=== PATIENT | female | born 1970 | race Caucasian/White ===

== ENCOUNTER → 2022-03-28 14:58 | Outpatient (CLI) | payer OTHER, SELFPAY ==
[2022-03-28 15:00] LABS: Basophils # 0.1 K/mm3 (0-0.2); Basophils % 0.9 % (0.1-2.0); Eosinophils # 0.3 K/mm3 (0.0-0.4); Eosinophils % 3.4 % (0.1-12.0); Hematocrit 38.4 % (37.0-47.0); Hemoglobin 12.7 g/dL (12.2-16.2); Lymphocytes # 2.6 K/mm3 (0.7-4.5); Lymphocytes % 28.5 % (10-50); Mean Corpuscular HGB Conc 33.2 g/dL (31.8-35.4); Mean Corpuscular Hemoglobin 30.6 pg (27.0-31.2); Mean Corpuscular Volume 92.2 fl (81-99); Mean Platelet Volume 9.5 fl (7.4-10.4); Monocytes # 0.2 K/mm3 (0.1-1.0); Monocytes % 2.6 % (1.7-9.3); Neutrophils # 5.9 K/mm3 (1.8-7.8); Neutrophils % 64.7 % (37.0-80.0); Platelet Count 227 K/mm3 (142-424); Red Blood Count 4.17 M/mm3 (4.20-5.40); Red Cell Distribution Width 14.6 % (11.5-17.5); White Blood Count 9.1 K/mm3 (4.8-10.8)
[2022-03-28 15:43] LABS: Chloride 93 mmol/L (98-107); Potassium 3.8 mmoL/L (3.5-5.1); Sodium 138 mmol/L (136-145)
[2022-03-28 15:45] LABS: Blood Urea Nitrogen 64 mg/dl (7-17); Estimated Glomerular Filt Rate 22 ml/min (>60); GFR (African American) 27 ML/MIN (>60)
[2022-03-28 15:46] LABS: Alanine Aminotransferase 62 U/L (12-78); Albumin/Globulin Ratio 1.1 (1.1-1.8); Alkaline Phosphatase 157 U/L (38-126); Anion Gap 13.8 mEq/L (5-15); Aspartate Amino Transferase 102 U/L (14-36); Bilirubin,Total 0.6 mg/dl (0.2-1.3); Carbon Dioxide 35 mmol/L (22.0-30.0); Chol/HDL Ratio 4.5 (1-3.5); Cholesterol 158 mg/dl (140-200); Globulin 3.7 g/dL (1.3-3.2); Glucose 90 mg/dl (74-100); HDL Cholesterol 35 mg/dl (40-60); Total Protein,Serum 7.7 g/dl (6.3-8.2); Triglycerides 96 mg/dl (30-150); VLDL Cholesterol 19 mg/dL (0-40)
[2022-03-28 15:58] LABS: Direct LDL Cholesterol 88.34 mg/dL (100-129)
[2022-03-28 16:15] LABS: 25-OH Vitamin D, Total < 12.8 ng/mL (30-100)
[2022-03-28 16:17] LABS: Thyroid Stimulating Hormone 0.92 uIU/mL (0.465-4.68)
[2022-03-28 16:37] LABS: Erythrocyte Sedimentation Rate 108 mm/hr (0-30)
[2022-03-30 11:39] LABS: RA Latex Turbid. 16.3 IU/mL (<14.0)
[2022-04-04 23:19] LABS: Antinuclear Antibodies, IFA POSITIVE
== END ==
PROVIDERS: PCP Emergency Medicine; Visit Provider Emergency Medicine
DX: M35.3 Polymyalgia rheumatica (principal); E66.9 Obesity, unspecified; Z68.43 Body mass index [BMI] 50.0-59.9, adult; E55.9 Vitamin D deficiency, unspecified
CPT/HCPCS: 80053; 80061; 82306; 83036; 84439; 84443; 84550; 85025; 85651; 86038; 86431

== ENCOUNTER → 2022-06-13 15:31 | Outpatient (CLI) | payer OTHER, SELFPAY ==
[2022-06-13 14:54] LABS: Barbiturates Screen,Urine Negative ng/ml (<200)
[2022-06-13 14:55] LABS: Benzodiazepines Screen,Urine Positive ng/ml (<200)
[2022-06-13 14:56] LABS: Methadone Screen,Urine Negative ng/ml (<300)
[2022-06-13 14:57] LABS: Cannabinoid Screen,Urine Negative ng/ml (<50)
[2022-06-13 14:58] LABS: Cocaine Screen,Urine Negative ng/ml (<300); Opiate Screen,Urine Negative ng/ml (<300)
[2022-06-13 14:59] LABS: Phencyclidine Screen,Urine Negative ng/ml (<25)
[2022-06-13 15:01] LABS: Amphetamine/Metha Screen,Urine Negative ng/ml (<1000)
== END ==
PROVIDERS: PCP Nurse Practitioner Family; Visit Provider Nurse Practitioner Family
DX: Z79.899 Other long term (current) drug therapy (principal)
CPT/HCPCS: 80305

== ENCOUNTER → 2022-06-19 10:29 | Outpatient (CLI) | payer OTHER, SELFPAY ==
[2022-06-19 11:42] LABS: Anion Gap 9.2 mEq/L (5-15); Blood Urea Nitrogen 14 mg/dl (7-17); Calcium 8.9 mg/dl (8.4-10.2); Carbon Dioxide 32 mmol/L (22.0-30.0); Chloride 99 mmol/L (98-107); Estimated Glomerular Filt Rate 75 ml/min (>60); GFR (African American) 91 ML/MIN (>60); Glucose 113 mg/dl (74-100); Potassium 3.2 mmoL/L (3.5-5.1); Sodium 137 mmol/L (136-145)
== END ==
LOC: LAB 10:29 → LAB.DROPOF 13:34
PROVIDERS: PCP Emergency Medicine; Visit Provider Emergency Medicine
DX: I10 Essential (primary) hypertension (principal)
CPT/HCPCS: 36415; 80048

== ENCOUNTER → 2022-10-08 13:00 | Outpatient (CLI) | payer OTHER, SELFPAY ==
[2022-10-08 20:18] LABS: Amphetamine/Metha Screen,Urine Negative ng/ml (<1000); Barbiturates Screen,Urine Negative ng/ml (<200)
[2022-10-08 20:19] LABS: Benzodiazepines Screen,Urine Negative ng/ml (<200)
[2022-10-08 20:20] LABS: Cannabinoid Screen,Urine Negative ng/ml (<50); Cocaine Screen,Urine Negative ng/ml (<300)
[2022-10-08 20:21] LABS: Methadone Screen,Urine Negative ng/ml (<300); Opiate Screen,Urine Negative ng/ml (<300)
[2022-10-08 20:22] LABS: Phencyclidine Screen,Urine Negative ng/ml (<25)
== END ==
PROVIDERS: PCP Emergency Medicine; Visit Provider Emergency Medicine
DX: Z79.899 Other long term (current) drug therapy (principal)
CPT/HCPCS: 80305

== ENCOUNTER → 2022-12-11 02:45 | Outpatient (CLI) | payer OTHER, SELFPAY ==
[2022-12-11 21:13] LABS: Amphetamine/Metha Screen,Urine Negative ng/ml (<1000); Barbiturates Screen,Urine Negative ng/ml (<200)
[2022-12-11 21:14] LABS: Benzodiazepines Screen,Urine Negative ng/ml (<200)
[2022-12-11 21:15] LABS: Cannabinoid Screen,Urine Negative ng/ml (<50); Cocaine Screen,Urine Negative ng/ml (<300)
[2022-12-11 21:16] LABS: Methadone Screen,Urine Negative ng/ml (<300)
[2022-12-11 21:17] LABS: Opiate Screen,Urine Negative ng/ml (<300); Phencyclidine Screen,Urine Negative ng/ml (<25)
== END ==
PROVIDERS: PCP Emergency Medicine; Visit Provider Emergency Medicine
DX: F41.9 Anxiety disorder, unspecified (principal)
CPT/HCPCS: 80305

== ENCOUNTER → 2023-02-06 08:39 | Outpatient (CLI) | payer OTHER, SELFPAY ==
[2023-02-06 22:03] LABS: Barbiturates Screen,Urine Negative ng/ml (<200)
[2023-02-06 22:04] LABS: Benzodiazepines Screen,Urine Negative ng/ml (<200)
[2023-02-06 22:05] LABS: Amphetamine/Metha Screen,Urine Negative ng/ml (<1000); Cocaine Screen,Urine Negative ng/ml (<300)
[2023-02-06 22:06] LABS: Cannabinoid Screen,Urine Negative ng/ml (<50); Methadone Screen,Urine Negative ng/ml (<300)
[2023-02-06 22:08] LABS: Opiate Screen,Urine Positive ng/ml (<300); Phencyclidine Screen,Urine Negative ng/ml (<25)
== END ==
PROVIDERS: PCP Emergency Medicine; Visit Provider Emergency Medicine
DX: Z79.899 Other long term (current) drug therapy (principal)
CPT/HCPCS: 80305

== ENCOUNTER 2023-04-11 20:27 | Outpatient (CLI) | payer OTHER, SELFPAY ==
[2023-04-11 18:56] LABS: Basophils # 0.1 K/mm3 (0-0.2); Basophils % 0.7 % (0.1-2.0); Eosinophils # 0.3 K/mm3 (0.0-0.4); Eosinophils % 3.2 % (0.1-12.0); Hematocrit 42.3 % (37.0-47.0); Lymphocytes # 2.2 K/mm3 (0.7-4.5); Lymphocytes % 28.1 % (10-50); Mean Corpuscular HGB Conc 33.1 g/dL (31.8-35.4); Mean Corpuscular Hemoglobin 30.7 pg (27.0-31.2); Mean Corpuscular Volume 92.5 fl (81-99); Mean Platelet Volume 9.2 fl (7.4-10.4); Monocytes # 0.3 K/mm3 (0.1-1.0); Monocytes % 3.4 % (1.7-9.3); Neutrophils # 5.1 K/mm3 (1.8-7.8); Neutrophils % 64.6 % (37.0-80.0); Platelet Count 229 K/mm3 (142-424); Red Blood Count 4.57 M/mm3 (4.20-5.40); Red Cell Distribution Width 14.8 % (11.5-17.5); White Blood Count 7.9 K/mm3 (4.8-10.8)
[2023-04-11 19:13] LABS: Alanine Aminotransferase 30 U/L (12-78); Alkaline Phosphatase 174 U/L (38-126); Aspartate Amino Transferase 45 U/L (14-36); Bilirubin,Total 0.4 mg/dl (0.2-1.3); Blood Urea Nitrogen 17 mg/dl (7-17); Calcium 9.6 mg/dl (8.4-10.2); Carbon Dioxide 38 mmol/L (22.0-30.0); Chloride 96 mmol/L (98-107); Chol/HDL Ratio 5.6 (1-3.5); Cholesterol 175 mg/dl (140-200); Estimated Glomerular Filt Rate 66 ml/min (>60); GFR (African American) 80 ML/MIN (>60); Globulin 4.2 g/dL (1.3-3.2); Glucose 113 mg/dl (74-100); HDL Cholesterol 31 mg/dl (40-60); Sodium 139 mmol/L (136-145); Total Protein,Serum 8.2 g/dl (6.3-8.2); Triglycerides 96 mg/dl (30-150); VLDL Cholesterol 19 mg/dL (0-40)
[2023-04-11 19:16] LABS: Anion Gap 8.1 mEq/L (5-15); Potassium 3.1 mmoL/L (3.5-5.1)
[2023-04-11 19:24] LABS: Direct LDL Cholesterol 112.04 mg/dL (100-129)
[2023-04-11 19:27] LABS: Hemoglobin A1C 5.7 % (4.0-6.0)
[2023-04-11 19:48] LABS: 25-OH Vitamin D, Total < 12.8 ng/mL (30-100)
[2023-04-11 20:20] LABS: Thyroid Stimulating Hormone 1.07 uIU/mL (0.465-4.68)
[2023-04-11 21:00] LABS: Amphetamine/Metha Screen,Urine Negative ng/ml (<1000)
[2023-04-11 21:02] LABS: Barbiturates Screen,Urine Negative ng/ml (<200)
[2023-04-11 21:04] LABS: Cannabinoid Screen,Urine Negative ng/ml (<50)
[2023-04-11 21:05] LABS: Methadone Screen,Urine Negative ng/ml (<300)
[2023-04-11 21:06] LABS: Opiate Screen,Urine Negative ng/ml (<300); Phencyclidine Screen,Urine Negative ng/ml (<25)
[2023-04-11 21:11] LABS: Benzodiazepines Screen,Urine Negative ng/ml (<200)
[2023-04-11 21:13] LABS: Cocaine Screen,Urine Negative ng/ml (<300)
[2023-04-19 11:36] LABS: Alprazolam Negative (Cutoff=100); Benzodiazepines Negative ng/mL (Cutoff=100); Clonazepam Negative (Cutoff=100); Flurazepam Negative (Cutoff=100); Lorazepam Negative (Cutoff=100); Midazolam Negative (Cutoff=100); Opiates Negative (Cutoff=100); Temazepam Negative (Cutoff=100); Triazolam Negative (Cutoff=100)
== END 2023-04-11 23:59 ==
LOC: LAB.DROPOF 20:28
PROVIDERS: Visit Provider Family Medicine
DX: E11.9 Type 2 diabetes mellitus without complications (principal); E66.01 Morbid (severe) obesity due to excess calories; Z68.43 Body mass index [BMI] 50.0-59.9, adult; Z79.899 Other long term (current) drug therapy
CPT/HCPCS: 80053; 80061; 80307; 80346; 80361; 80365; 82306; 83036; 84443; 85025; G0480

== ENCOUNTER 2023-05-08 21:46 | Outpatient (CLI) | payer OTHER, SELFPAY ==
[2023-05-08 20:16] LABS: Basophils % 0.3 % (0.1-2.0); Hematocrit 42.3 % (37.0-47.0); Hemoglobin 14.3 g/dL (12.2-16.2); Lymphocytes # 2.2 K/mm3 (0.7-4.5); Lymphocytes % 22.7 % (10-50); Mean Corpuscular HGB Conc 33.9 g/dL (31.8-35.4); Mean Corpuscular Hemoglobin 30.3 pg (27.0-31.2); Mean Corpuscular Volume 89.5 fl (81-99); Mean Platelet Volume 11.2 fl (7.4-10.4); Monocytes # 0.4 K/mm3 (0.1-1.0); Monocytes % 3.8 % (1.7-9.3); Neutrophils # 7.2 K/mm3 (1.8-7.8); Neutrophils % 73.2 % (37.0-80.0); Platelet Count 150 K/mm3 (142-424); Red Blood Count 4.73 M/mm3 (4.20-5.40); Red Cell Distribution Width 14.9 % (11.5-17.5); White Blood Count 9.8 K/mm3 (4.8-10.8)
[2023-05-08 20:23] LABS: Alanine Aminotransferase 45 U/L (12-78); Albumin Level 3.9 g/dl (3.5-5.0); Alkaline Phosphatase 171 U/L (38-126); Anion Gap 9.6 mEq/L (5-15); Aspartate Amino Transferase 120 U/L (14-36); Bilirubin,Total 0.7 mg/dl (0.2-1.3); Blood Urea Nitrogen 31 mg/dl (7-17); Carbon Dioxide 34 mmol/L (22.0-30.0); Chloride 94 mmol/L (98-107); Chol/HDL Ratio 8.1 (1-3.5); Cholesterol 162 mg/dl (140-200); Estimated Glomerular Filt Rate 47 ml/min (>60); GFR (African American) 57 ML/MIN (>60); Glucose 109 mg/dl (74-100); HDL Cholesterol 20 mg/dl (40-60); Sodium 135 mmol/L (136-145); Total Protein,Serum 7.9 g/dl (6.3-8.2); Triglycerides 113 mg/dl (30-150); VLDL Cholesterol 23 mg/dL (0-40)
[2023-05-08 20:35] LABS: Erythrocyte Sedimentation Rate 40 mm/hr (0-30)
[2023-05-08 20:36] LABS: C-Reactive Protein 83.7 mg/L (0-4); Direct LDL Cholesterol 108.53 mg/dL (100-129)
[2023-05-08 20:41] LABS: 25-OH Vitamin D, Total 15.9 ng/mL (30-100)
[2023-05-08 20:50] LABS: Potassium 2.6 mmoL/L (3.5-5.1)
[2023-05-08 20:56] LABS: Thyroid Stimulating Hormone 0.25 uIU/mL (0.465-4.68)
[2023-05-08 22:58] LABS: Creatinine,Urine Random 75 mg/dL (Not Estab.)
[2023-05-08 23:00] LABS: Microalbumin < 6.000 mg/L (0-16.7)
[2023-05-10 05:08] LABS: Complement C3 128 mg/dL (82-167); RA Latex Turbid. 16.5 IU/mL (<14.0)
[2023-05-10 12:48] LABS: Anti-Centromere B Antibodies <0.2 AI (0.0-0.9); Anti-DNA (DS) Ab Qn <1 IU/mL (0-9); Anti-Jo-1 <0.2 AI (0.0-0.9); Anti-Smith Antibody <0.2 AI (0.0-0.9); Antichromatin Antibodies <0.2 AI (0.0-0.9); Antiscleroderma-70 Antibodies <0.2 AI (0.0-0.9); RNP Antibodies <0.2 AI (0.0-0.9); Sjogren's Anti-SS-A <0.2 AI (0.0-0.9); Sjogren's Anti-SS-B <0.2 AI (0.0-0.9)
[2023-05-10 14:16] LABS: Anti-Cyclic Citrullinated Pept 8 units (0-19)
[2023-05-23 12:37] LABS: Rheumatoid Factor IGA 20 U (<7); Rheumatoid Factor IGM 16 U (<7)
== END 2023-05-08 23:59 ==
LOC: LAB.DROPOF 21:46
PROVIDERS: PCP Internal Medicine; Visit Provider Internal Medicine
DX: I25.10 Atherosclerotic heart disease of native coronary artery without angina pectoris (principal); R53.83 Other fatigue; F41.9 Anxiety disorder, unspecified; I10 Essential (primary) hypertension; K74.60 Unspecified cirrhosis of liver; R76.8 Other specified abnormal immunological findings in serum; E11.9 Type 2 diabetes mellitus without complications; E55.9 Vitamin D deficiency, unspecified; R79.82 Elevated C-reactive protein (CRP); R76.0 Raised antibody titer
CPT/HCPCS: 80053; 80061; 82043; 82306; 82570; 84443; 85025; 85651; 86140; 86148; 86161; 86200; 86225; 86235; 86431

== ENCOUNTER 2023-06-10 19:03 | Outpatient (CLI) | payer OTHER, SELFPAY ==
[2023-06-10 18:36] LABS: Chloride 100 mmol/L (98-107); Sodium 138 mmol/L (136-145)
[2023-06-10 18:39] LABS: Alanine Aminotransferase 32 U/L (12-78); Albumin Level 3.7 g/dl (3.5-5.0); Alkaline Phosphatase 201 U/L (38-126); Anion Gap 7.8 mEq/L (5-15); Aspartate Amino Transferase 43 U/L (14-36); Basophils # 0.1 K/mm3 (0-0.2); Basophils % 1.2 % (0.1-2.0); Bilirubin,Total 0.4 mg/dl (0.2-1.3); Blood Urea Nitrogen 19 mg/dl (7-17); Carbon Dioxide 33 mmol/L (22.0-30.0); Eosinophils # 0.3 K/mm3 (0.0-0.4); Eosinophils % 4.1 % (0.1-12.0); Estimated Glomerular Filt Rate 65 ml/min (>60); GFR (African American) 79 ML/MIN (>60); Globulin 3.6 g/dL (1.3-3.2); Glucose 139 mg/dl (74-100); Hematocrit 42.4 % (37.0-47.0); Hemoglobin 13.5 g/dL (12.2-16.2); Lymphocytes # 2.9 K/mm3 (0.7-4.5); Mean Corpuscular HGB Conc 31.9 g/dL (31.8-35.4); Mean Corpuscular Volume 94.1 fl (81-99); Mean Platelet Volume 10.7 fl (7.4-10.4); Monocytes # 0.3 K/mm3 (0.1-1.0); Monocytes % 3.1 % (1.7-9.3); Neutrophils # 4.8 K/mm3 (1.8-7.8); Neutrophils % 56.7 % (37.0-80.0); Platelet Count 205 K/mm3 (142-424); Red Cell Distribution Width 16.1 % (11.5-17.5); Total Protein,Serum 7.3 g/dl (6.3-8.2); White Blood Count 8.4 K/mm3 (4.8-10.8)
[2023-06-10 18:45] LABS: C-Reactive Protein 10.9 mg/L (0-4)
[2023-06-10 18:46] LABS: Potassium 2.8 mmoL/L (3.5-5.1)
[2023-06-10 19:17] LABS: Erythrocyte Sedimentation Rate 23 mm/hr (0-30)
[2023-06-10 20:14] LABS: 25-OH Vitamin D, Total 28.1 ng/mL (30-100)
== END 2023-06-10 23:59 ==
LOC: LAB.DROPOF 19:04
PROVIDERS: PCP Internal Medicine; Visit Provider Internal Medicine
DX: N18.9 Chronic kidney disease, unspecified (principal); E55.9 Vitamin D deficiency, unspecified; Z68.42 Body mass index [BMI] 45.0-49.9, adult
CPT/HCPCS: 80053; 82306; 84443; 85025; 85651; 86140

== ENCOUNTER 2023-07-08 11:51 | Outpatient (CLI) | payer OTHER, SELFPAY ==
[2023-07-08 18:54] LABS: Chloride 94 mmol/L (98-107); Potassium 3.1 mmoL/L (3.5-5.1); Sodium 137 mmol/L (136-145)
[2023-07-08 18:57] LABS: Blood Urea Nitrogen 31 mg/dl (7-17); Estimated Glomerular Filt Rate 34 ml/min (>60); GFR (African American) 41 ML/MIN (>60)
[2023-07-08 18:58] LABS: Anion Gap 11.1 mEq/L (5-15); Calcium 9.8 mg/dl (8.4-10.2); Carbon Dioxide 35 mmol/L (22.0-30.0); Glucose 101 mg/dl (74-100)
== END 2023-07-08 23:59 ==
LOC: LAB.DROPOF 07-09 11:51
PROVIDERS: PCP Internal Medicine; Visit Provider Internal Medicine
DX: E87.6 Hypokalemia (principal)
CPT/HCPCS: 80048